=== PATIENT | male | born 1940 | race Caucasian/White ===

== ENCOUNTER 2017-12-28 17:29 | Emergency (ER) | END 2017-12-28 19:44 | disposition home or self-care (01) ==

== ENCOUNTER 2018-11-29 08:23 | Day surgery (SDC) | payer OTHER ==
--- NOTE | 2018-11-28 13:23 | PREOPHP ---
DATE OF ADMISSION: 11/29/2018 HISTORY OF PRESENT ILLNESS: This 78-year-old patient is admitted for elective cataract surgery of th e right eye. The patient has had a multi-year decrease in visual acuity in the right eye and previou sly underwent cataract surgery in the left eye in 2013. 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 The patient's systemic history is positive for hypertension and neuropathy. CURRENT MEDICATIONS INCLUDE: 1. Lisinopril. 2. Aspirin (discontinued 1 week prior to surgery). 3. Gabapentin. 4. Lorazepam. ALLERGIES: THERE ARE NO KNOWN ALLERGIES. PHYSICAL EXAMINATION: Visual acuity with best correction is 20/80 in the right eye and no light perc eption in the left eye. Slit lamp examination reveals moderate nuclear sclerosis and posterior subca psular cataract in the right eye. The left eye has a posterior chamber intraocular lens in appropria te position. Applanation tonometry is 20 mmHg in the right eye. Examination of the retina is within normal limits. 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 DIAGNOSIS: Nuclear sclerotic and posterior subcapsular cataract, right eye. PLAN: Cataract extraction with lens implant, right eye. The risks and alternatives to the surgery h ave been discussed with the patient as well as the potential for improvement of visual acuity leading to greater ability to perform activities of daily living. The patient understands this and agrees t o proceed with surgery. Dictated By: RADHA ROCHA/MITZI Conf#: [id number] DID#: [id number]
[2018-11-29] VITALS (10 sets, daily range): BP systolic 108–127; BP diastolic 52–58; PULSE 70–78; RESP 16–17; Ht 170.2 cm; Wt 87.9 kg
[~2018-11-29] VITALS: Ht 170.2 cm; Wt 87.9 kg
[~2018-11-29 08:23] MED LIST: CYCLOPENTOLATE/PHENYLEPH 2 ML OPH OPER SCH; DICLOFENAC 0.1% 2.5 ML OPH OPER SCH; ELIM TOP; LORA1TAB PO; MOXIFLOXACIN 0.5% 3 ML OPH OPER SCH; PRED20TA PO; SOD CHLORIDE 0.9% 1,000 ML IV SCH; TRIA60LO10 TOP; TROPICAMIDE 1% 15 ML OPH OPER SCH; lisinopril PO
[2018-11-29] MEDS ORDERED: HYDR-3029 PO (09:10)
[2018-11-29] MEDS ORDERED: MONT10TA24 PO (09:10)
[2018-11-29] MEDS ORDERED: LISI40TA3 PO (09:11)
[2018-11-29] MEDS ORDERED: CETI10TA19 PO (09:11)
--- NOTE | 2018-11-29 10:16 | PREAC ---
Date/Time of Note Date/Time of Note DATE: 11/29/18 TIME: 10:10 Anesthesia Eval and Record Evaluation Time Pre-Procedure Interview DATE: 11/29/18 TIME: 10:10 Age 78 Sex male NPO: 8 hrs Preoperative diagnosis Right Cataract Planned procedure Right Cataract Extraction and IOL Past Medical History Past Medical History: Includes Cardio: HTN Endo: Other Pulm: Other Neuro: Other Musculoskeletal: Other Renal: Other Hepatic: Other GI: Other Heme: Other Psych: Other Infection(s): Other Recreational drugs: Other : Other Surgery & Anesthesia Issues Aspiration risk Meds Anticoagulation: No Beta Jag within 24 hr: No Reason Beta Jag not given: Pt. not on B-Jag Reported Medications Cetirizine Hcl* (Cetirizine Hcl*) 10 Mg Tablet, 10 MG PO DAILY, #30 TAB 11/29/18 Lisinopril* (Lisinopril*) 40 Mg Tablet, 40 MG PO DAILY, #30 TAB 11/29/18 Montelukast Sodium* (Montelukast Sodium*) 10 Mg Tablet, 10 MG PO QHS, #30 TAB 11/29/18 Hydroxyzine Hcl* (Hydroxyzine Hcl*) 10 Mg Tablet, 10 MG PO QHS PRN for ITCHING, #30 TAB 11/29/18 Discontinued Reported Medications Lorazepam* (Lorazepam*) 1 Mg Tablet, 1 MG PO HS, TAB 10/16/14 [lisinopril] No Conflict Check, 20 MG PO BID 07/13/13 Discontinued Scripts Prednisone* (Prednisone*) 20 Mg Tab, 40 MG PO DAILY for 5 Days, TAB Prov:MICHELE JORDAN MD 12/28/17 Triamcinolone Acetonide (Triamcinolone Acetonide) 0.025% - 60 Ml Lotion, 1 APPLI C TOP TID for 7 Days, #1 BOTTLE Prov:MICHELE JORDAN MD 12/28/17 Permethrin* (Elimite*) 5% Cr, 1 APPLIC TOP ONCE for 1 Day, #1 TUB Prov:MICHELE JORDAN MD 12/28/17 Current Medications Diclofenac Sodium (Voltaren 0.1%) 1 drop Q5 MIN X 3 OPER Last administered on 11/29/18at 09:20; Admin Dose 1 DROP; Start 11/29/18 at 08:00 Tropicamide (Mydriacyl 1%) 1 drop Q5 MIN X3 OPER Last administered on 11/29/18at 09:20; Admin Dose 1 DROP; Start 11/29/18 at 08:00 Moxifloxacin HCl (Vigamox) 1 drop Q5 MIN X 3 OPER Last administered on 11/29/18at 09:20; Admin Dose 1 DROP; Start 11/29/18 at 08:00 Cyclopentolate/ Phenylephrine (Cyclomydril Oph 2 ml) 1 drop Q5 MIN X 3 OPER Last administered on 11/29/18 09:20; Admin Dose 1 DROP; Start 11/29/18 at 08:00 Sodium Chloride 1,000 ml @ 25 mls/hr Q24H IV Last administered on 11/29/18 09:10; Admin Dose 25 MLS/HR; Start 11/29/18 at 08:00 Meds reviewed: Yes Allergies Coded Allergies: No Known Allergy (Unverified , 11/29/18) Allergies Reviewed: Yes Labs/Studies Labs Reviewed: Reviewed by anesthesiologist test: N/A Studies: ECG, CXR Pre-procedure Exam Last vitals Vital Signs Date Temp Pulse Resp B/P (MAP) Pulse Ox O2 O2 Flow FiO2 Time Delivery Rate 11/29/18 98.5 70 16 119/56 Room Air 08:30 (77) Airway: Adequate mouth opening Mallampati: Mallampati II Teeth: Normal Lung: Normal Heart: Normal Anticipated Difficutly with IV: Anticipate Difficult IV Access ASA Physical Status ASA physical status: 2 Emergency: None Planned Anesthetic General/MAC: MAC Neuraxial: Other Nerve block: Other Planned Pain Management Parenteral pain med, Local by surgeon Pre-operative Attestations Prior to commencing anesthesia and surgery, the patient was re-evaluated, there was verification of: *The patient's identity *The results of appropriate recent lab work and preoperative vital signs *The above evaluation not changing prior to induction *Anesthetic plan, risk benefits, alternative and complications discussed with patient/family; questions answered; patient/family understands, accepts and wishes to proceed. CHRISTY FARRELL MD Nov 29, 2018 10:16
[2018-11-29] MEDS ORDERED: CEFAZOLIN 1 GM INJ ONE (10:37)
[2018-11-29] MEDS ORDERED: CARBACHOL 0.01% 1.5 ML OPH INJ ONE (10:37)
[2018-11-29] MEDS ORDERED: LIDOCAINE 4% (MPF) 5 ML INJ ONE (10:37)
[2018-11-29] MEDS ORDERED: DEXAMETHASONE 4 MG/ML 1 ML INJ ONE (10:37)
[2018-11-29] MEDS ORDERED: NA HYALURONATE/CHONDROITIN 0.5 ML SYG ONE (10:38)
[2018-11-29] MEDS ORDERED: PROPOFOL 20 ML ONE (10:55)
[2018-11-29] MEDS ORDERED: LIDOCAINE 100 MG SYRINGE ONE (10:55)
--- NOTE | 2018-11-29 12:00 | SIPON ---
Date/Time of Note Date/Time of Note DATE: 11/29/18 TIME: 11:59 Operative Report Preoperative Diagnosis mature catarct od Postoperative Diagnosis same Operation/Procedure Performed cataract extraction with lens implant od Surgeon radha ruvalcaba assistant maintenance manager none Anesthesia: MAC Estimated blood loss: none Transfusion Required none Specimen none Grafts/Implants anterior chamber lens implant Complications none RADHA RUVALCABA MD Nov 29, 2018 12:00
--- NOTE | 2018-11-29 12:01 | PAC ---
Date/Time of Note Date/Time of Note DATE: 11/29/18 TIME: 12:00 Post-Anesthesia Notes Post-Anesthesia Note Last documented vital signs Vital Signs Date Temp Pulse Resp B/P (MAP) Pulse Ox O2 O2 Flow FiO2 Time Delivery Rate 11/29/18 98.5 70 16 119/56 Room Air 08:30 (77) Activity: WNL Respiratory function: WNL Cardiovascular function: WNL Mental status: Baseline Pain reasonably controlled: Yes Hydration appropriate: Yes Nausea/Vomiting absent: No CHRISTY FARRELL MD Nov 29, 2018 12:01
[2018-11-29] MEDS ORDERED: ACETAMINOPHEN 325 MG TAB ONE (13:07)
[2018-11-29] MEDS ORDERED: ACETAMINOPHEN 325 MG TAB PO ONE (13:30)
--- NOTE | 2018-11-29 15:05 | OPR ---
DATE OF OPERATION: 11/29/2018 PREOPERATIVE DIAGNOSIS: Mature cataract, right eye. POSTOPERATIVE DIAGNOSIS: Mature cataract, right eye. PROCEDURE: Cataract extraction with an anterior vitrectomy and anterior chamber intraocular lens, ri t eye. SURGEON: Radha Cuellar MD ANESTHESIOLOGIST: Luciano Reinoso MD DESCRIPTION OF OPERATION: The patient was brought to the operating room on an eye gurney, positioned appropriately, attached to electrocardiogram monitoring, given oxygen via nasal cannula. After intr avenous sedation was administered, the patient received local anesthesia using lidocaine 2% given in lid block and retrobulbar injection. The patient was then prepped and draped in the usual sterile ma nner and a speculum was inserted between the lids of the right eye. Two paracentesis incisions were made at the nasal and temporal limbal areas through clear cornea and then a 3.0 mm keratome was used to enter the anterior chamber in a stepped corneal incision near the superior limbus. After this was performed, the anterior chamber was filled with Viscoat and then an anterior capsulotomy was perform ed. Balanced salt solution was used for hydrodissection. Phacoemulsification of the lens nucleus re quired a higher ultrasound setting due to the density of the lens nucleus. This was emulsified, but during the process of emulsification, it was noted that there was a break in the posterior capsule an d there was some formed vitreous present at the lips of the wound. A limited anterior vitrectomy was performed using mechanical vitrectomy instrumentation. Following this, the remnants of the lens epi nuclear material were removed. Some lens cortical material was aspirated as well. An attempt was ma de to place a posterior chamber lens in view of the fact that there was sufficient capsular support b ut after placing the posterior chamber lens implants with its haptics placed anterior to the capsular remnants, it was noted that the lens did not center well. It was therefore decided to open the woun d from the 3 mm to 7 mm size and to explant the posterior chamber intraocular lens. Additional anter ior vitrectomy was then performed and then a peripheral iridectomy was performed superiorly. The ant erior chamber was filled with Provisc and then a lens glide was placed across the iris to the inferio r chamber angle. An anterior chamber intraocular lens measuring 19.0 diopters (Bausch and Lomb model [id number]) was inserted anterior to the lens glide and following that, the lens glide was removed. The trailing haptic was tucked under the scleral shelf and then 4 interrupted 10-0 nylon [address]ures were pl aced across the wound. The lens was rotated so that the haptics were oriented in the horizontal fredi cydney. Miostat had previously been instilled to constrict the pupil. The lens centered well and appe ared to be in appropriate position. Prior to tying the final suture, the Provisc was aspirated from the anterior chamber. The final suture was tied. The ends were cut short and the knots were buried. A 0.5 mL of Ancef and 0.5 mL of dexamethasone were injected into the sub-Tenon space and into the l ower lid. Vigamox drops were then placed on the surface of the eye and then the eye was patched. Th e patient left the operating room in satisfactory condition. Dictated By: RADHA ROCHA/MITZI Conf#: [id number] DID#: [id number]
== END 2018-11-29 13:23 | disposition home or self-care (01) ==
LOC: SDS 08:23
PROVIDERS: ATTEND Ophthalmology
DX: H25.11 Age-related nuclear cataract, right eye (principal); Z79.82 Long term (current) use of aspirin; I10 Essential (primary) hypertension
CPT/HCPCS: 66984; J0690; J1100; J2001; Z7610; V2630; V2632

== ENCOUNTER 2019-03-30 13:37 | Emergency (ER) | payer OTHER ==
[~2019-03-30] VITALS: Wt 87.1 kg
[~2019-03-30 13:37] MED LIST changes: +CETI10TA19 PO; -CYCLOPENTOLATE/PHENYLEPH 2 ML OPH OPER SCH; -DICLOFENAC 0.1% 2.5 ML OPH OPER SCH; -ELIM TOP; +HYDR-3029 PO; +LISI40TA3 PO; -LORA1TAB PO; +MONT10TA24 PO; -MOXIFLOXACIN 0.5% 3 ML OPH OPER SCH; -PRED20TA PO; -SOD CHLORIDE 0.9% 1,000 ML IV SCH; -TRIA60LO10 TOP; -TROPICAMIDE 1% 15 ML OPH OPER SCH; -lisinopril PO
--- NOTE | 2019-03-30 16:53 | EN ---
Date/Time of Note Date/Time of Note DATE: 03/30/19 TIME: 16:52 ER Progress Note Rapid medical evaluation was started on this patient. 78-year-old male presenting to the emergency department complains of swelling to his left lower extremity for the past 1 month. Venous Doppler showed no evidence of DVT but did show left upper thigh mass and so patient was redirected to emergency department 1 for further work-up and treatment if required. MIKE BALDERAS PA-C March 30, 2019 16:53
[2019-03-30] MEDS ORDERED: SOD CHLORIDE 0.9% 1,000 ML IV STA (17:08)
[2019-03-30 18:48] VITALS: BP 14/70; PULSE 72; RESP 18
[2019-03-30] MEDS ORDERED: IBUP-1542 PO (18:51)
--- NOTE | 2019-03-30 18:54 | ERD ---
ER Documentation Chief Complaint Chief Complaint LEFT LEG SWELLING/PAIN X 1 MOS HPI Patient is a 78-year-old male with hypertension who presents with left leg pain and swelling. Please note a leather finisher was used for the entire history and physical exam. The symptoms started 1 month ago. The patient has had constant and worsening pain. The patient has had no treatment as of yet. The patient's primary doctor is Dr. Navarrete. ROS All systems reviewed and are negative except as per history of present illness. Medications Home Meds Active Scripts Ibuprofen* (Motrin*) 600 Mg Tab, 600 MG PO Q6H PRN for PAIN AND OR ELEVATED TEMP, #30 TAB Prov:АННА YEN MD 03/30/19 Reported Medications Cetirizine Hcl* (Cetirizine Hcl*) 10 Mg Tablet, 10 MG PO DAILY, #30 TAB 11/29/18 Lisinopril* (Lisinopril*) 40 Mg Tablet, 40 MG PO DAILY, #30 TAB 11/29/18 Montelukast Sodium* (Montelukast Sodium*) 10 Mg Tablet, 10 MG PO QHS, #30 TAB 11/29/18 Hydroxyzine Hcl* (Hydroxyzine Hcl*) 10 Mg Tablet, 10 MG PO QHS PRN for ITCHING, #30 TAB 11/29/18 Allergies Allergies: Coded Allergies: No Known Allergy (Unverified , 03/30/19) PMhx/Soc History of Surgery: Yes (PROSTATECTOMY, HERNIA REPAIR) Anesthesia Reaction: No Hx Neurological Disorder: No Hx Respiratory Disorders: No Hx Cardiac Disorders: Yes (HTN) Hx Psychiatric Problems: No Hx Miscellaneous Medical Probl: Yes (PROSTATE CA) Hx Alcohol Use: No Hx Substance Use: No Hx Tobacco Use: No Smoking Status: Never smoker FmHx Family History: No diabetes Physical Exam Vitals Vital Signs Date Temp Pulse Resp B/P (MAP) Pulse Ox O2 O2 Flow FiO2 Time Delivery Rate 03/30/19 98.0 72 18 14/70 (52) 100 Room Air 18:48 03/30/19 97.8 73 23 134/64 100 Room Air 17:24 (87) 03/30/19 98.1 57 18 139/67 98 13:40 (91) Physical Exam Const: No acute distress Head: Atraumatic Eyes: Normal Conjunctiva ENT: Normal External Ears, Nose and Mouth. Neck: Full range of motion. No meningismus. Resp: Clear to auscultation bilaterally Cardio: Regular rate and rhythm, no murmurs Abd: Soft, non tender, non distended. Normal bowel sounds Skin: No petechiae or rashes Back: No midline or flank tenderness Ext: No obvious swelling left leg compared to the right, no signs of infection Neur: Awake and alert Psych: Normal Mood and Affect Result Diagram: 03/30/19 1713 03/30/19 1713 Results 24 hrs Laboratory Tests Test 03/30/19 17:13 03/30/19 17:20 White Blood Count 10.5 10^3/ul Red Blood Count 4.44 10^6/ul Hemoglobin 13.3 g/dl Hematocrit 41.2 % Mean Corpuscular Volume 92.8 fl Mean Corpuscular Hemoglobin 30.0 pg Mean Corpuscular Hemoglobin Concent 32.3 g/dl Red Cell Distribution Width 13.0 % Platelet Count 245 10^3/UL Mean Platelet Volume 10.2 fl Immature Granulocytes % 0.400 % Neutrophils % 68.4 % Lymphocytes % 14.1 % Monocytes % 8.4 % Eosinophils % 7.8 % Basophils % 0.9 % Nucleated Red Blood Cells % 0.0 /100WBC Immature Granulocytes # 0.040 10^3/ul Neutrophils # 7.2 10^3/ul Lymphocytes # 1.5 10^3/ul Monocytes # 0.9 10^3/ul Eosinophils # 0.8 10^3/ul Basophils # 0.1 10^3/ul Nucleated Red Blood Cells # 0.0 10^3/ul Sodium Level 142 mmol/L Potassium Level 4.3 mmol/L Chloride Level 105 mmol/L Carbon Dioxide Level 29 mmol/L Anion Gap 8 Blood Urea Nitrogen 25 mg/dl Creatinine 1.37 mg/dl Est Glomerular Filtrat Rate mL/min mL/min Glucose Level 105 mg/dl Calcium Level 9.4 mg/dl Total Bilirubin 0.5 mg/dl Direct Bilirubin 0.00 mg/dl Indirect Bilirubin 0.5 mg/dl Aspartate Amino Transf (AST/SGOT) 22 IU/L Alanine Aminotransferase (ALT/SGPT) 13 IU/L Alkaline Phosphatase 69 IU/L Total Protein 7.8 g/dl Albumin 4.0 g/dl Globulin 3.80 g/dl Albumin/Globulin Ratio 1.05 Lipase 90 U/L Prothrombin Time 13.4 Sec Prothrombin Time Ratio 1.0 INR International Normalized Ratio 1.01 Activated Partial Thromboplast Time 30.1 Sec Troponin I < 0.012 ng/ml Current Medications Medications Dose Sig/Edilson Start Time Status Last (Trade) Ordered Route PRN Stop Time Admin Dose Reason Admin Sodium 1,000 ml @ Q1H STAT 03/30/19 DC 03/30/19 Chloride 1,000 mls/hr IV 17:08 17:29 03/30/19 18:07 Procedures/MDM Ultrasound read by radiology. CT scan of the lower extremity shows lymph node swelling per radiology. Patient is a 78-year-old male presents with left leg pain and swelling. Ultrasound was negative for DVT but did show a mass so CT scan was obtained. There is no sign of cancerous mass but it does show a swollen lymph node. Patient will need close follow-up anyway for follow-up within 24 to 48 hours. He may still require a biopsy of this node laboratory studies are basically normal. The patient will be discharged and can return if there are any worsening symptoms. The patient will be given ibuprofen for pain and inflammat ion reduction. Departure Diagnosis: Primary Impression: Lymphadenopathy Additional Impression: Leg pain Laterality: left Qualified Codes: M79.605 - Pain in left leg Condition: Fair Patient Instructions: Lymphedema Additional Instructions: Llame al doctor MAANA y tana chester KELLY PARA DENTRO DE 1-2 AL.Dgale a la secretaria que nosotros le instruimos hacer esta kelly.Avise o llame si yip condicin se empeora antes de la kelly. Regresa aqui si peor o no mejor. АННА YEN MD March 30, 2019 18:54
== END 2019-03-30 19:16 | disposition home or self-care (01) ==
LOC: E/R 13:37
DX: M79.605 Pain in left leg (principal); R59.1 Generalized enlarged lymph nodes; I10 Essential (primary) hypertension; R40.2142 Coma scale, eyes open, spontaneous, at arrival to emergency department; R40.2252 Coma scale, best verbal response, oriented, at arrival to emergency department; R40.2362 Coma scale, best motor response, obeys commands, at arrival to emergency department; Z85.46 Personal history of malignant neoplasm of prostate
CPT/HCPCS: 36415; 73700; 80053; 81001; 83690; 84484; 85025; 85610; 85730; 93971; J7030; Z7502